=== PATIENT | male | born 1960 | race Caucasian/White ===

== ENCOUNTER 2022-06-06 13:43 | Emergency (ER) | payer SELFPAY ==
[~2022-06-06] VITALS: Ht 180.3 cm; Wt 127.3 kg
[2022-06-06 14:54] LABS: BASOPHILS % (AUTO) 0.3 % (0.0-2.0); EOSINOPHILS % (AUTO) 0.5 % (1.0-6.0); HEMATOCRIT 49.3 % (41-53); HEMOGLOBIN 16.4 g/dL (13.5-17.5); LYMPHOCYTES # (AUTO) 0.3 K/uL (1.0-4.8); LYMPHOCYTES % (AUTO) 3.3 % (22.0-44.0); MEAN CORPUSCULAR HEMOGLOBIN 30.3 pg (26.0-34.0); MEAN CORPUSCULAR HGB CONC 33.3 G/dL (31.0-37.0); MEAN CORPUSCULAR VOLUME 91 fL (80-100); MONOCYTES # (AUTO) 0.8 K/uL (0.1-1.0); MONOCYTES % (AUTO) 7.9 % (2.0-9.0); NEUTROPHILS # (AUTO) 8.6 K/uL (1.8-7.7); PLATELET COUNT (AUTO) 164 K/uL (150-450); RED BLOOD CELL COUNT(AUTO) 5.41 MIL/uL (4.50-5.90); RED CELL DISTRIBUTION WIDTH 13.9 % (11.5-14.5)
[2022-06-06 15:02] LABS: ANION GAP 10 mmol/L (8-16); CALCIUM, TOTAL 8.8 mg/dL (8.8-10.5); CARBON DIOXIDE 28 mmol/L (22-29); CHLORIDE 98 mmol/L (98-107); GLUCOSE,RANDOM 100 mg/dL (70-110); POTASSIUM 3.7 mmol/L (3.5-5.1); SODIUM SERUM 136 mmol/L (136-145); UREA NITROGEN, BLOOD 9 mg/dL (7-18)
[2022-06-06 15:04] LABS: GLOMERULAR FILTR. RATE CALC > 60 mL/min (>60)
[2022-06-06] MEDS ORDERED: IOHEXOL 350 MG/ML 100 ML VIAL ONE (15:13)
[2022-06-06] MEDS ORDERED: SODIUM CHLORIDE 0.9% 100 ML ONE (15:13)
[2022-06-06] MEDS ORDERED: MORPHINE SULFATE 4 MG/ML SYRINGE IVP ONE (15:15)
[2022-06-06 18:32] VITALS: BP 137/86
== END 2022-06-06 18:58 | disposition home or self-care (01) ==
LOC: EMS 13:46
DX: R07.9 Chest pain, unspecified (principal); H66.92 Otitis media, unspecified, left ear; I10 Essential (primary) hypertension
CPT/HCPCS: 99285; 96374; 71275; 71045; 80048; 84484; 85025; 36415; 93005; J2270; Q9967; J7050